=== PATIENT | female | born 1970 | race Caucasian/White ===

== ENCOUNTER 2018-03-22 13:07 | Observation (INO) ==
[2018-03-22] MEDS ORDERED: Morphine Inj 4 MG/ML Vial IV.PUSH ONE (13:28)
--- NOTE | 2018-03-22 13:28 | ED ---
HPI General Chief Complaint: Chest Pain Stated Complaint: chest pain Time Seen by Provider: 03/22/18 13:16 Source: patient Mode of arrival: ambulatory Limitations: no limitations History of Present Illness HPI narrative: Patient is a history of acute onset of substernal chest pressure onset of 15 minutes ago while she was at rest. No alleviating or aggravating factors at this point. Patient states that she does not have any past medical history other than cholecystectomy, 2 and hysterectomy, however the patient does smoke half a pack a day. Patient describes the sensation as a pressure heaviness and felt to radiate up to her right side of her neck. MD complaint: chest pain Complete Quality Measures for STEMI Alert Patients STEMI Alert: No Onset (ago): minute(s) (15) Duration: constant Onset: during rest Pain location: substernal Severity: severe Severity scale (1-10): 8 Quality: tightness and heaviness Pain radiation: neck (Right side of her neck) Relieving factors: nothing Exacerbating factors: nothing Associated symptoms: nausea Related Data Home Medications Medication Instructions Recorded Confirmed No Known Home Medications 03/22/18 03/22/18 Allergies Allergy/AdvReac Type Severity Reaction Status Date / Time No Known Allergies Allergy Unverified 03/22/18 13:20 Review of Systems ROS: all other systems reviewed are negative PMFSH History History Provided By: Patient Medical History Medical History Hx of hysterectomy (Acute) No significant medical problems (Acute) Smoker (Acute) Surgical History Surgical History Hx of section (Acute) Hx of cholecystectomy (Acute) Social History Social History Substance History: No History of Abuse Second Hand Smoke Exposure: Yes Smoking Status: Current every day smoker Tobacco Type: Cigarettes How Often Do You Have a Drink Containing Alcohol: 2 to 3 times a week Recent Travel in [place] within the Last 8 Weeks: No Recent Out of Country Travel within the Last 8 Weeks: No Exam Narrative Exam Narrative: GENERAL: Well-nourished, well-developed patient in no apparent distress. SKIN: Warm and dry. HEAD: Atraumatic. Normocephalic. EYES: Pupils equal and round. No scleral icterus. No injection or drainage. ENT: No nasal bleeding or discharge. Mucous membranes pink and moist. NECK: Trachea midline. No JVD. CARDIOVASCULAR: Regular rate and rhythm. no rubs or gallops RESPIRATORY: No accessory muscle use. Clear to auscultation. Breath sounds equal bilaterally. GASTROINTESTINAL: Abdomen soft, non-tender, nondistended. No rebound or guarding MUSCULOSKELETAL: Extremities without clubbing, cyanosis, or edema. No obvious deformities. NEUROLOGICAL: Awake and alert. No obvious cranial nerve deficits. Motor grossly within normal limits. Five out of 5 muscle strength in the arms and legs. Normal speech. PSYCHIATRIC: Appropriate mood and affect; insight and judgment normal. Course Initial Documented Vital Signs Temperature 97.8 F 03/22/18 13:21 Pulse Rate 84 03/22/18 13:21 Respiratory Rate 20 03/22/18 13:21 Blood Pressure 131/66 03/22/18 13:21 Pulse Oximetry 98 03/22/18 13:21 Last Documented Vital Signs Temperature 97.9 F 03/22/18 17:04 Pulse Rate 68 03/22/18 17:04 Respiratory Rate 17 03/22/18 17:04 Blood Pressure 109/66 03/22/18 17:04 Pulse Oximetry 99 03/22/18 17:04 Medical Decision Making MDM Narrative Medical decision making narrative: CBC shows no evidence of any leukocytosis, no anemia no left shift Coagulation profile is within normal limits Tox screen is positive for opiates only UA is negative for UTI First set of cardiac enzymes negative Normal liver kidney and pancreatic functions electrolytes are all within normal limits Medical Screen Exam Complete: Yes Emergency Medical Condition: Yes Differential Diagnosis Differential Diagnosis: Pneumonia versus pleural effusion versus pneumothorax versus STEMI versus non-STEMI versus pulmonary edema Medical Records Medical records reviewed: Yes I reviewed the patient's medical records. Lab Data Result diagrams: 03/22/18 13:00 03/22/18 13:00 Lab Results 03/22/18 03/22/18 03/22/18 Range/Units 13:00 13:00 13:00 WBC 7.4 (4.0-11.0) th/mm3 RBC 4.31 (4.00-5.30) mil/mm3 Hgb 14.7 (11.6-15.3) gm/dL Hct 42.9 (35.0-46.0) % MCV 99.5 (80.0-100.0) fL MCH 34.1 H (27.0-34.0) pg MCHC 34.3 (32.0-36.0) % RDW 12.4 (11.6-17.2) % Plt Count 201 (150-450) th/mm3 MPV 9.1 (7.0-11.0) fL Neut % (Auto) 59.5 (16.0-70.0) % Lymph % (Auto) 30.6 (9.0-44.0) % Early % (Auto) 7.9 (0.0-8.0) % Eos % (Auto) 1.5 (0.0-4.0) % Baso % (Auto) 0.5 (0.0-2.0) % Neut # (Auto) 4.4 (1.8-7.7) th/mm3 Lymph # (Auto) 2.3 (1.0-4.8) th/mm3 Early # (Auto) 0.6 (0.0-0.9) th/mm3 Eos # (Auto) 0.1 (0.0-0.4) th/mm3 Baso # (Auto) 0.0 (0.0-0.2) th/mm3 WBC Differential . Differential Comment Auto diff final PT (9.8-11.6) sec INR Ratio APTT (24.3-30.1) sec Sodium 141 (136-145) meq/L Potassium 4.4 (3.5-5.1) meq/L Chloride 107 (98-107) meq/L Carbon Dioxide 26.3 (21.0-32.0) meq/L Anion Gap 8 (5-15) meq/L BUN 12 (7-18) mg/dL Creatinine 0.76 (0.50-1.00) mg/dL Estimated GFR 82 L (>89) mL/min Random Glucose 106 (74-106) mg/dL Calcium 8.6 (8.5-10.1) mg/dL Total Bilirubin 0.3 (0.2-1.0) mg/dL AST 12 L (15-37) U/L ALT 23 (10-53) U/L Alkaline Phosphatase 54 (45-117) U/L Total Creatine Kinase 81 (26-192) U/L Troponin I Less than 0.02 L (0.02-0.05) ng/mL B-Natriuretic Peptide 17 (0-100) pg/mL Total Protein 7.5 (6.4-8.2) g/dL Albumin 3.8 (3.4-5.0) g/dL Lipase 177 (73-393) U/L Urine Color (Yellw/Straw) Urine Clarity (Clear) Urine pH (5.0-8.5) Ur Specific [place] (1.002-1.035) Urine Protein (Neg-Trace) mg/dL Urine Glucose (UA) (Negative) mg/dL Urine Ketones (Negative) mg/dL Urine Occult Blood (Negative) Urine Nitrate (Negative) Urine Bilirubin (Negative) Urine Urobilinogen (Less than 2) mg/dL Ur Leukocyte Esterase (Negative) Urine RBC (0-3) /hpf Urine WBC (0-5) /hpf Ur Squamous Epith Cells (0-5) /hpf Amorphous Sediment (None) /hpf Urine Mucus (Occasional) /lpf Micro UA Comment Urine Culture Comments Urine Opiates Screen (Neg) Ur Barbiturates Screen (Neg) Ur Amphetamines Screen (Neg) U Benzodiazepines Scrn (Neg) Urine Cocaine Screen (Neg) U Cannabinoids Screen (Neg) 03/22/18 03/22/18 03/22/18 Range/Units 15:00 15:00 15:39 WBC (4.0-11.0) th/mm3 RBC (4.00-5.30) mil/mm3 Hgb (11.6-15.3) gm/dL Hct (35.0-46.0) % MCV (80.0-100.0) fL MCH (27.0-34.0) pg MCHC (32.0-36.0) % RDW (11.6-17.2) % Plt Count (150-450) th/mm3 MPV (7.0-11.0) fL Neut % (Auto) (16.0-70.0) % Lymph % (Auto) (9.0-44.0) % Early % (Auto) (0.0-8.0) % Eos % (Auto) (0.0-4.0) % Baso % (Auto) (0.0-2.0) % Neut # (Auto) (1.8-7.7) th/mm3 Lymph # (Auto) (1.0-4.8) th/mm3 Early # (Auto) (0.0-0.9) th/mm3 Eos # (Auto) (0.0-0.4) th/mm3 Baso # (Auto) (0.0-0.2) th/mm3 WBC Differential Differential Comment PT 10.0 (9.8-11.6) sec INR 1.0 Ratio APTT 27.0 (24.3-30.1) sec Sodium (136-145) meq/L Potassium (3.5-5.1) meq/L Chloride (98-107) meq/L Carbon Dioxide (21.0-32.0) meq/L Anion Gap (5-15) meq/L BUN (7-18) mg/dL Creatinine (0.50-1.00) mg/dL Estimated GFR (>89) mL/min Random Glucose (74-106) mg/dL Calcium (8.5-10.1) mg/dL Total Bilirubin (0.2-1.0) mg/dL AST (15-37) U/L ALT (10-53) U/L Alkaline Phosphatase (45-117) U/L Total Creatine Kinase (26-192) U/L Troponin I (0.02-0.05) ng/mL B-Natriuretic Peptide (0-100) pg/mL Total Protein (6.4-8.2) g/dL Albumin (3.4-5.0) g/dL Lipase (73-393) U/L Urine Color Yellow (Yellw/Straw) Urine Clarity Hazy H (Clear) Urine pH 7.0 (5.0-8.5) Ur Specific [place] 1.013 (1.002-1.035) Urine Protein Negative (Neg-Trace) mg/dL Urine Glucose (UA) Negative (Negative) mg/dL Urine Ketones Negative (Negative) mg/dL Urine Occult Blood Negative (Negative) Urine Nitrate Negative (Negative) Urine Bilirubin Negative (Negative) Urine Urobilinogen Less than 2 (Less than 2) mg/dL Ur Leukocyte Esterase Negative (Negative) Urine RBC 1 (0-3) /hpf Urine WBC 2 (0-5) /hpf Ur Squamous Epith Cells 2 (0-5) /hpf Amorphous Sediment Few H (None) /hpf Urine Mucus Few H (Occasional) /lpf Micro UA Comment Culture not ind Urine Culture Comments Culture not ind Urine Opiates Screen Pos H (Neg) Ur Barbiturates Screen Neg (Neg) Ur Amphetamines Screen Neg (Neg) U Benzodiazepines Scrn Neg (Neg) Urine Cocaine Screen Neg (Neg) U Cannabinoids Screen Neg (Neg) Imaging Data Radiologist's impression: Chest CTA 03/22/18 13:28 CONCLUSION: 1. No CT evidence for pulmonary artery embolism. 2. Evidence for prior granulomatous disease. 3. Otherwise, unremarkable CT examination of the chest. Chest X-Ray 03/22/18 13:28 CONCLUSION: 1. No acute cardiopulmonary disease. ECG Data EKG Prior to Arrival: No Attestation: I personally reviewed and interpreted this ECG as follows: Prior ECG tracings: not available for review Interpretation: Normal sinus rhythm, 80 bpm, normal intervals, normal axis, no evidence of any ST elevation CA pattern Discharge Plan Discharge Disposition Patient Disposition: 30 Still Patient Discharge Condition Condition: Stable Discharge Details Diagnosis: Chest pain Physicians Team ED Provider: Brian Carbajal Primary Care Provider: Primary Care Viola De Leon Rxs /Orders / Referrals /Forms Prescriptions: No Action No Known Home Medications RF: 0 Discharge Instructions Patient Printed Instructions: Chest Pain (ED) Status ED Status: With Doctor
[2018-03-22 14:13] LABS: Baso % (Auto) 0.5 % (0.0-2.0); Eos # (Auto) 0.1 th/mm3 (0.0-0.4); Eos % (Auto) 1.5 % (0.0-4.0); Hematocrit 42.9 % (35.0-46.0); Hemoglobin 14.7 gm/dL (11.6-15.3); Lymph # (Auto) 2.3 th/mm3 (1.0-4.8); Lymph % (Auto) 30.6 % (9.0-44.0); Mean Corpuscular HGB Conc 34.3 % (32.0-36.0); Mean Corpuscular Hemoglobin 34.1 pg (27.0-34.0); Mean Corpuscular Volume 99.5 fL (80.0-100.0); Mean Platelet Volume 9.1 fL (7.0-11.0); Mono # (Auto) 0.6 th/mm3 (0.0-0.9); Mono % (Auto) 7.9 % (0.0-8.0); Neut # (Auto) 4.4 th/mm3 (1.8-7.7); Neut % (Auto) 59.5 % (16.0-70.0); Platelet Count 201 th/mm3 (150-450); Red Blood Count 4.31 mil/mm3 (4.00-5.30); Red Cell Distribution Width 12.4 % (11.6-17.2); White Blood Count 7.4 th/mm3 (4.0-11.0)
--- NOTE | 2018-03-22 14:17 | XR ---
EXAM DATE: 03/22/2018 2:14 PM EDT AGE/SEX: 48 years / Female INDICATIONS: Chest pain. CLINICAL DATA: This is the patient's initial encounter. Patient reports that signs and symptoms have been present for 1 day and indicates a pain score of 4/10. MEDICAL/SURGICAL HISTORY: None. . Gallbladder removed. COMPARISON: No prior exams available for comparison. FINDINGS: A single AP view of the chest demonstrates the lungs to be symmetrically aerated without evidence of mass, infiltrate or effusion. The cardiomediastinal contours are unremarkable. Osseous structures a re intact. CONCLUSION: 1. No acute cardiopulmonary disease. Electronically signed by: Tico Cox MD 03/22/2018 2:15 PM EDT
[2018-03-22 14:22] LABS: Alanine Aminotransferase 23 U/L (10-53); Albumin 3.8 g/dL (3.4-5.0); Anion Gap 8 meq/L (5-15); Aspartate Aminotransferase 12 U/L (15-37); Blood Urea Nitrogen 12 mg/dL (7-18); Calcium 8.6 mg/dL (8.5-10.1); Carbon Dioxide 26.3 meq/L (21.0-32.0); Chloride 107 meq/L (98-107); Glomerular Filtration Rate 82 mL/min (>89); Glucose,Random 106 mg/dL (74-106); Lipase 177 U/L (73-393); Potassium 4.4 meq/L (3.5-5.1); Sodium 141 meq/L (136-145)
[2018-03-22 14:25] LABS: Alkaline Phosphatase 54 U/L (45-117); Total Protein 7.5 g/dL (6.4-8.2)
[2018-03-22 14:32] LABS: Creatine Kinase 81 U/L (26-192)
--- NOTE | 2018-03-22 15:27 | CT ---
EXAM DATE: 03/22/2018 3:22 PM EDT AGE/SEX: 48 years / Female INDICATIONS: Chest pain today. CLINICAL DATA: This is the patient's initial encounter. Patient reports that signs and symptoms have been present for 1 day and indicates a pain score of 7/10. MEDICAL/SURGICAL HISTORY: None. Cholecystectomy. Hysterectomy. section. RADIATION DOSE: 20.62 CTDI (mGy) COMPARISON: [facility], CHEST 1V SINGLE AP, 03/22/2018. . TECHNIQUE: Volumetric scanning was performed using a multi-row detector CT scanner during bolus infu mya of 75 ml Omnipaque 350 (iohexol) nonionic water-soluble contrast as a single exam dose. The michael a was post processed with a variety of visualization algorithms including full volume maximum intensi ty projection and sliding thin slab reformation. Using automated exposure control and adjustment of the mA and/or kV according to patient size, radiation dose was kept as low as reasonably achievable t o obtain optimal diagnostic quality images. DICOM format image data is available electronically for review and comparison. FINDINGS: Pulmonary Arteries: No filling defects are seen in the pulmonary arteries through the segmental vess els. The main pulmonary artery is normal in diameter. Lung: Minimal groundglass opacities at the bases. Small calcified granuloma in the left lower lobe. Pleura: No effusion, significant pleural thickening or pneumothorax. Mediastinum: Heart is unremarkable without pericardial effusion. Multiple calcified left hilar nodes . Osseous Structures: No abnormal focal lytic or blastic bony lesions. Other: Visulaized upper abdomen is unremarkable. CONCLUSION: 1. No CT evidence for pulmonary artery embolism. 2. Evidence for prior granulomatous disease. 3. Otherwise, unremarkable CT examination of the chest. Electronically signed by: Tico Cox MD 03/22/2018 3:25 PM EDT
[2018-03-22 15:37] LABS: Amorphous Sediment,Urine Few /hpf; Bilirubin,Urine Negative (Negative); Clarity,Urine Hazy (Clear); Color,Urine Yellow (Yellw/Straw); Glucose,Urine (UA) Negative (Negative); Leukocyte Esterase,Urine Negative (Negative); Mucus,Urine Few /lpf (Occasional); Nitrite,Urine Negative (Negative); Specific Gravity,Urine 1.013 (1.002-1.035); Squamous Epithelial Cell,Urine 2 /hpf (0-5)
[2018-03-22 15:42] LABS: Amphetamine Screen,Urine Neg (Neg); Barbiturate Screen,Urine Neg (Neg); Cannabinoid Screen,Urine Neg (Neg); Cocaine Screen,Urine Neg (Neg)
[2018-03-22 15:43] LABS: Opiate Screen,Urine Pos (Neg)
[2018-03-22] MEDS: Sod Chloride 0.9% Inj 1,000 ML IV.CONT SCH (17:41)
[2018-03-22 19:50] LABS: Creatine Kinase 78 U/L (26-192)
[2018-03-22 22:38] LABS: Creatine Kinase 54 U/L (26-192)
[2018-03-23] MEDS: Sod Chloride 0.9% Inj 1,000 ML IV.CONT SCH (02:35)
[2018-03-23] MEDS ORDERED: Aspirin 325 MG Tablet PO SCH (09:00)
[2018-03-23 10:01] VITALS: BP 111/71; RESP 16; TEMP 99; O2SAT 98
--- NOTE | 2018-03-23 10:24 | P.HPCA ---
History of Present Illness Primary Care Physician: No Primary Care Physician Chief Complaint: Chest pain History of Present Illness: This is a 48-year-old female history of tobacco abuse and hyperlipidemia that presents to ED with complaint of chest discomfort that began yesterday around noon. States she was sitting on a couch when it began. Describes as a central chest pressure rated as an 8-9 out of 10 radiating to the right side of her neck intermittently. The pressure in her chest has remained somewhat but states that has significantly improved after getting IV morphine in the ED. The discomfort is rated as about a 1.5 out of 10. Yesterday she briefly was short of breath and nauseous with a couple episodes actually of nonbloody emesis. Denies diaphoresis. Cannot recall prior cardiac workup. Has history of hyperlipidemia but was unable to tolerate statins, stating it created a lot of myalgias. She is continuing to smoke but has reduced the amount of the last 6 months. There is family history of CAD. Patient smokes about one half pack a series daily for the last 6 months but prior that she smoked about 1 pack a series daily for 30 years. Denies alcohol or illicit drug use. Her father had stents in his 60s. - Diagnosis (1) Chest pain (2) Hyperlipidemia (3) Tobacco abuse Review of Systems General: Patient denies fevers, chills, and recent travel. HEENT: Patient denies headache, sore throat, difficulty swallowing. Cardiovascular: Has the chest discomfort as mentioned above. Denies sensation of heart beating rapidly or irregularly. No syncope. Denies diaphoresis. Respiratory: Denies shortness of breath or inspirational chest discomfort. Denies coughing wheezing or hemoptysis. GI: She was nauseous earlier when the symptoms began with a couple episodes of nonbloody emesis. Patient denies diarrhea, abdominal pain, and bloody stools. Musculoskeletal: Planes of chronic bilateral knee pain. Patient denies joint edema. Denies calf pain or edema. Neurovascular: Patient denies numbness, tingling, weakness in extremities. Denies headache. Endocrine: Denies polyuria and polydipsia. Hematologic: Denies easy bruising. Skin: Denies rash or itching. PMFSH - History History Provided By: Patient - Medical History Medical History: Medical History (Last Updated 03/22/18 @ 13:25 by Lisa Abrams) Hx of hysterectomy No significant medical problems Smoker - Surgical History Surgical History: Surgical History (Last Reviewed 03/22/18 @ 13:25 by Brian Carbajal) Hx of section Hx of cholecystectomy - Tobacco History Second Hand Smoke Exposure: Yes Tobacco Use In Past 30 Days: Yes Smoking Status: Current every day smoker Tobacco Type: Cigarettes - Alcohol History How Often Do You Have a Drink Containing Alcohol: 2 to 3 times a week - Substance Use History Substance History: No History of Abuse - Travel History Recent Travel in the [place] Within the Last 8 Weeks: No Recent Travel Out of the Country Within the Last 8 Weeks: No - Immunization History Tetanus Immunization: >5 Years Hx Influenza Vaccine This Season: No Medications and Allergies Active Medications: Active Medications Aspirin (Aspirin) 325 mg PO DAILY MAX Nitroglycerin (Nitrostat Sl) 0.4 mg SL Q5M PRN PRN Reason: CHEST PAIN Sodium Chloride (Ns Flush) 2 ml IV.FLUSH UNSCH PRN PRN Reason: FLUSH AFTER USING IV ACCESS Last Admin: 03/22/18 13:38 Dose: 2 ml Sodium Chloride (Ns Flush) 2 ml IV.FLUSH BID MAX Last Admin: 03/22/18 23:11 Dose: 2 ml Sodium Chloride (Ns Flush) 2 ml IV.FLUSH PRN PRN PRN Reason: FLUSH AFTER USING IV ACCESS Allergies Allergy/AdvReac Type Severity Reaction Status Date / Time No Known Allergies Allergy Unverified 03/22/18 13:20 Home Medications Medication Instructions Recorded Confirmed Type No Known Home Medications 03/22/18 03/22/18 History Exam Vital signs: Vital Signs 03/22/18 13:21 03/22/18 13:28 03/22/18 13:40 Temperature 97.8 F 97.9 F Pulse Rate 84 83 Respiratory Rate 20 4 L 2 L Blood Pressure 131/66 131/68 Pulse Oximetry 98 99 03/22/18 14:03 03/22/18 14:07 03/22/18 15:45 Temperature 97.8 F Pulse Rate 71 Respiratory Rate 18 17 Blood Pressure 110/68 Pulse Oximetry 97 99 03/22/18 17:04 03/22/18 17:26 03/22/18 20:00 Temperature 97.9 F 97.7 F 98.8 F Pulse Rate 68 76 65 Respiratory Rate 17 17 18 Blood Pressure 109/66 124/68 114/68 Pulse Oximetry 99 99 99 03/22/18 23:40 03/23/18 03:54 03/23/18 08:00 Temperature 98.5 F 98.1 F 99.0 F Pulse Rate 67 70 72 Respiratory Rate 16 18 16 Blood Pressure 100/65 111/62 111/71 Pulse Oximetry 98 97 98 Intake & Output 03/22/18 03/23/18 03/23/18 18:59 06:59 18:59 Intake Total 1000 / 1000 Output Total 600 / 600 Balance -600 / -600 1000 / 1000 Weight 98.883 kg Intake: IV 1000 / 1000 NS Inj 1,000 ML @ 100 mls/hr IV 1000 / 1000 .CONT .Q10H MAX Rx#:[id number] Output: Urine 600 / 600 Other: # Voids 1 Narrative: GENERAL: This is a well-nourished, well-developed patient, in no apparent distress. Patient speaks in clear complete sentences. Patient is pleasant. HEENT: Head is atraumatic and normocephalic. Neck is supple without lymphadenopathy and trachea is midline. No JVD or carotid bruits. CARDIOVASCULAR: Regular rate and rhythm without murmurs, gallops, or rubs. RESPIRATORY: Clear to auscultation. Breath sounds equal bilaterally. No wheezes , rales, or rhonchi. Chest wall is tender. No use of accessory muscles. GASTROINTESTINAL: Abdomen is nontender, nondistended. Abdomen soft. No obvious pulsatile mass or bruit. No CVA tenderness. Strong femoral pulses bilaterally. Normal bowel sounds in all quadrants. MUSCULOSKELETAL: Patient is moving upper and lower extremities freely. No calf tenderness or edema, no Homans sign. Strong pulses in upper and lower extremities. NEUROLOGICAL: Patient is alert and oriented. Cranial nerves 2-12 are grossly intact. No focal deficits and speech is clear. SKIN: No rash and turgor is normal. Results 03/22/18 13:00 03/22/18 13:00 Cardiac Enzymes 03/22/18 03/22/18 03/22/18 Range/Units 13:00 13:00 17:30 AST 12 L (15-37) U/L Troponin I Less than 0.02 L Less than 0.02 L (0.02-0.05) ng/mL B-Natriuretic Peptide 17 (0-100) pg/mL 03/22/18 Range/Units 21:40 AST (15-37) U/L Troponin I Less than 0.02 L (0.02-0.05) ng/mL B-Natriuretic Peptide (0-100) pg/mL Coagulation 03/22/18 03/22/18 Range/Units 13:00 15:39 PT 10.0 (9.8-11.6) sec APTT 27.0 (24.3-30.1) sec B-Natriuretic Peptide 17 (0-100) pg/mL CBC 03/22/18 Range/Units 13:00 WBC 7.4 (4.0-11.0) th/mm3 RBC 4.31 (4.00-5.30) mil/mm3 Hgb 14.7 (11.6-15.3) gm/dL Hct 42.9 (35.0-46.0) % Plt Count 201 (150-450) th/mm3 Neut # (Auto) 4.4 (1.8-7.7) th/mm3 Lymph # (Auto) 2.3 (1.0-4.8) th/mm3 [place] # (Auto) 0.6 (0.0-0.9) th/mm3 Eos # (Auto) 0.1 (0.0-0.4) th/mm3 Baso # (Auto) 0.0 (0.0-0.2) th/mm3 Comprehensive Metabolic Panel 03/22/18 Range/Units 13:00 Sodium 141 (136-145) meq/L Potassium 4.4 (3.5-5.1) meq/L Chloride 107 (98-107) meq/L Carbon Dioxide 26.3 (21.0-32.0) meq/L BUN 12 (7-18) mg/dL Creatinine 0.76 (0.50-1.00) mg/dL Calcium 8.6 (8.5-10.1) mg/dL AST 12 L (15-37) U/L ALT 23 (10-53) U/L Alkaline Phosphatase 54 (45-117) U/L Total Protein 7.5 (6.4-8.2) g/dL Albumin 3.8 (3.4-5.0) g/dL Intake and Output 03/22/18 03/23/18 03/23/18 22:59 06:59 14:59 Intake Total 1000 / 1000 Output Total 600 / 600 Balance -600 / -600 1000 / 1000 Intake: IV 1000 / 1000 NS Inj 1,000 ML @ 100 mls/hr IV 1000 / 1000 .CONT .Q10H MAX Rx#:[id number] Output: Urine 600 / 600 Other: # Voids 1 EKG interpretations - EKG EKG shows: sinus rhythm (EKGs are sinus rhythm without significant ST segment depressions or elevations.) Caprini VTE Risk Assessment Caprini VTE Risk Assessment: No/Low Risk (score <= 1) Caprini Risk Assessment Model: Point Value = 1 Point Value = 2 Point Value = 3 Point Value = 5 Age 41-60 Minor surgery BMI > 25 kg/m2 Swollen legs Varicose veins or History of unexplained or recurrent spontaneous Oral contraceptives or hormone replacement Sepsis (< 1 month) Serious lung disease, including pneumonia (< 1 month) Abnormal pulmonary function Acute myocardial infarction Congestive heart failure (< 1 month) History of inflammatory bowel disease Medical patient at bed rest Age 61-74 Arthroscopic surgery Major open surgery (> 45 min) Laparoscopic surgery (> 45 min) Malignancy Confined to bed (> 72 hours) Immobilizing plaster cast Central venous access Age >= 75 History of VTE Family history of VTE Factor V Leiden Prothrombin [id number] Lupus anticoagulant Anticardiolipin antibodies Elevated serum homocysteine Heparin-induced thrombocytopenia Other congenital or acquired thrombophilia Stroke (< 1 month) Elective arthroplasty Hip, pelvis, or leg fracture Acute spinal cord injury (< 1 month) Prophylaxis Regimen: Total Risk Factor Score Risk Level Prophylaxis Regimen 0-1 Low Early ambulation 2 Moderate Order ONE of the following: *Sequential Compression Device (SCD) *Heparin 5000 units SQ BID 3-4 Higher Order ONE of the following medications: *Heparin 5000 units SQ TID *Enoxaparin/Lovenox 40 mg SQ daily (WT < 150 kg, CrCl > 30 mL/min) *Enoxaparin/Lovenox 30 mg SQ daily (WT < 150 kg, CrCl > 10-29 mL/min) *Enoxaparin/Lovenox 30 mg SQ BID (WT < 150 kg, CrCl > 30 mL/min) AND/OR *Sequential Compression Device (SCD) 5 or more Highest Order ONE of the following medications: *Heparin 5000 units SQ TID (Preferred with Epidurals) *Enoxaparin/Lovenox 40 mg SQ daily (WT < 150 kg, CrCl > 30 mL/min) *Enoxaparin/Lovenox 30 mg SQ daily (WT < 150 kg, CrCl > 10-29 mL/min) *Enoxaparin/Lovenox 30 mg SQ BID (WT < 150 kg, CrCl > 30 mL/min) AND *Sequential Compression Device (SCD) Assessment and Plan - Assessment (1) Chest pain Code(s): R07.9 - Chest pain, unspecified Status: Acute (2) Hyperlipidemia Code(s): E78.5 - Hyperlipidemia, unspecified Status: Acute (3) Tobacco abuse Code(s): Z72.0 - Tobacco use Status: Acute - Plan * Chest pain: Patient has had serial cardiac enzymes and EKGs for ruling out purposes. She will be seen by Dr. Rod of cardiology in the chest pain center. She will undergo a Cesar protocol ETT and likely be discharged home if her stress test is nonischemic with instructions to follow-up with PCP. Return to ED for interval issues. * Hyperlipidemia: Patient is discussed with her PCP other options that may not cause her to have myalgias. * Tobacco abuse: Patient counseled on the importance of smoking cessation. Patient is stable at this time. She is agreeable to this plan. (1) Chest pain Qualifiers: Chest pain type: unspecified Qualified Code(s): R07.9 - Chest pain, unspecified
--- NOTE | 2018-03-23 11:33 | TR ---
Date Performed: 03/23/2018 Time Performed: 10:36:20 DOCTOR: Christiano Rod DRUG LIST: CLINICAL HISTORY: REASON FOR TEST: Chest pain REASON FOR ENDING: OBSERVATION: CONCLUSION: ABRAHAM PROTOCOL. NO CP. TEST STOPPED AFTER EXCEEDING GOAL HR SECONDARY TO SOB AND LE G FATIGUE.Maximum PW=961 % Max HR Achieved=92.0% Maximum EQ=263/60 Total Exercise Time=8:00 COMMENTS: Conclusion: Normal treadmill exercise. No evidence of ischemia.
[2018-03-23 13:26] VITALS: PULSE 61
--- NOTE | 2018-03-23 14:58 | ECG ---
Date Performed: 03/22/2018 Time Performed: 20:45:43 PTAGE: 48 years EKG: Sinus rhythm NORMAL ECG PREVIOUS TRACING : 03/22/2018 17.45 Since previous tracing, no significant change noted DOCTOR: Christiano Rod Interpretating Date/Time 03/23/2018 14:57:27
--- NOTE | 2018-03-23 14:58 | ECG ---
Date Performed: 03/22/2018 Time Performed: 13:20:47 PTAGE: 48 years EKG: Sinus rhythm NORMAL ECG NO PREVIOUS TRACING DOCTOR: Christiano Rod Interpretating Date/Time 03/23/2018 14:57:58
--- NOTE | 2018-03-23 14:58 | ECG ---
Date Performed: 03/22/2018 Time Performed: 17:45:40 PTAGE: 48 years EKG: Sinus rhythm NORMAL ECG PREVIOUS TRACING : 03/22/2018 13.20 Since previous tracing, no significant change noted DOCTOR: Christiano Rod Interpretating Date/Time 03/23/2018 14:57:42
== END 2018-03-23 15:03 | disposition home or self-care (01) ==
LOC: NEDA 13:07 → NEPGCP 13:07 → NEPC 13:07 → NEDA 18:35 → NEPGCP 19:40